=== PATIENT | male | born 1965 | race Caucasian/White ===

== ENCOUNTER 2017-01-20 13:42 | Observation (INO) ==
--- NOTE | 2017-01-20 14:01 | EKG Report ---
Stationary ECG Study [facility] ER Test Date: 01/20/2017 1:51:44 PM Pat Name: YARITZA SMITH Department: Room: EDREG Gender: M Blockman: Martina Bustos : 1965 Requested by: Nahid Chamberlain Order Number: [id number] Reading MD: OLGA LIDIA BARRY Intervals Brooks Rate: 69 P: 59 MO: 166 QRS: 24 QRSD: 126 T: 61 QT: 396 QTc: 415 Interpretive Statements SINUS RHYTHM WITH SINUS ARRHYTHMIA RSR IN V1/V2 CONSISTENT WITH RIGHT VENTRICULAR CONDUCTION DELAY Electronically Signed On 01-21-17 20:41:07 CDT by OLGA ILDIA BARRY [email or web address]
[2017-01-20 14:05] LABS: Basophils # 0.1 10*3/uL (0.0-0.2); Basophils % 0.7 % (0.0-0.8); Eosinophils # 0.2 10*3/uL (0.0-0.87); Eosinophils % 2.7 % (0.00-10.9); Hematocrit 43.8 VOL% (42.0-52.0); Hemoglobin 14.9 GM/DL (14.0-18.0); Immature Granulocytes % 0.8 %; Immature Granulocytes Absolute 0.07 #; Lymphocytes # 2.2 10*3/uL (1.4-4.0); Lymphocytes % 26.7 % (21.2-54.2); Mean Corpuscular Hemoglobin 28 PG (27-34); Mean Platelet Volume 10.2 FL (9.6-12.0); Monocytes # 0.4 10*3/uL (0.11-0.8); Monocytes % 4.6 % (1.7-12.7); Neutrophils # 5.3 10*3/uL (1.4-7.4); Neutrophils % 64.5 % (38.7-73.9); Platelet Count 282 T/CUMM (130-400); Red Blood Count 5.28 MC/CUMM (3.8-5.5); Red Cell Distribution Width 12.9 % (9.3-17.3); White Blood Count 8.3 T/CUMM (4-12)
--- NOTE | 2017-01-20 14:13 | XRay Report ---
XR chest 2V Indication: Chest pain Comparison: None Technique: Frontal and lateral views of the chest. Findings: Heart size appears upper limits normal. Chronic change of the lungs without focal consolidation, pleural effusion, or pneumothorax. Visualized osseous and surrounding soft tissue structures demonstrate no acute abnormality. IMPRESSION: No acute cardiopulmonary process demonstrated. PROCEDURE INTERPRETED AT [facility] DEPARTMENT OF RADIOLOGY Final Report Signed by: Dr Chay Hall
[2017-01-20 14:23] LABS: D-Dimer <= 0.5 MG/L FEU; INR 0.9; PT Patient Result 9.7 SECS; Partial Thromboplastin Time 27.1 SECS (0-40)
[2017-01-20 14:27] LABS: Albumin 3.9 G/DL (3.4-5.0); Bilirubin,Total 0.6 MG/DL (0.2-1.0); Calcium 8.8 MG/DL (8.5-10.1); Magnesium 2.3 MG/DL (1.8-2.4); Osmolality,Calculated 281.3 MOS/KG (273-304); Potassium 3.7 MMOL/L (3.5-5.1); Total Protein 7.1 G/DL (6.4-8.3)
[2017-01-20] MEDS ORDERED: NITROGLYCERIN 2% OINT 1 INCH/GM PACK TOP STA (15:11)
[2017-01-20] MEDS ORDERED: ENOXAPARIN 80 MG/0.8 ML SYRINGE SUBCUT STA (15:11)
--- NOTE | 2017-01-20 15:18 | Emergency Department Note ---
Jennifer Daniels Mantricia, am scribing for, and in the presence of, Nahid Lopez MD 15:13. Jessica Daniels James D, MD, personally performed the services described in this documentation, ascribed by Aguilar Rodriguez in my presence, and it is both accurate and complete 516 . Arrival - Arrival Chief Complaint: Chest Pain Stated Complaint: chfest tightness and nausea ED Nursing Triage Note: Pt c/o CP x 3 wks ago was seen at [facility] on January 11. Pain worse today with dizziness and nausea. Mode of Arrival: Ambulatory Limitations: No Limitations Source: Patient Time Seen by Provider: 01/20/17 15:00 - History of Present Illness HPI Narrative: Pt is a 51 y/o white male arriving to ED with c/o chest pain that onset 3 weeks ago. He states that the pain has waxed and waned for 3 weeks; however the pain worsened today and radiated to his LUE. He also states that the pain worsens with movement and is accompanied with nausea and SOB. Pt reports no other complaints to ED. Onset (ago): week(s) Consistency: constant Severity: moderate Allergies/Adverse Reactions: Allergies Allergy/AdvReac Type Severity Reaction Status Date / Time No Known Allergies Allergy Verified 01/20/17 13:47 Home Medications: Home Medications Medication Instructions Recorded Confirmed Type No Known Home Medications [No 01/20/17 01/20/17 History Known Home Medications] Review of System - Review of System 12 point system: reviewed and no additional remarkable complaints except as stated - Review of System Constitutional: Absent: chills, diaphoresis, fever Eyes: Absent: discharge, pain Head/Ears/Nose/Throat: Absent: earache Respiratory: Absent: cough, respiratory distress, wheezing Cardiovascular: Present: chest pain, dyspnea on exertion. Absent: palpitations Gastrointestinal: Present: nausea. Absent: abdominal pain, vomiting, diarrhea Genitourinary male: Absent: urgency, dysuria Musculoskeletal: Present: arm pain (LUE). Absent: back pain, lower back pain, leg pain, neck pain Skin: Absent: rash, lesions Neurological: Absent: headache, weakness Psychiatric: Absent: anxiety Medical,Surgical,& Family Hx - Social History Smoking Status: Never smoker Exam Vital Signs: Vital Signs Temperature 97.9 F 01/20/17 16:49 Pulse Rate 69 05/30/17 16:49 Respiratory Rate 16 01/20/17 16:49 Blood Pressure 139/78 01/20/17 16:49 O2 Sat by Pulse Oximetry 98 01/20/17 14:49 - General General appearance: alert, in no apparent distress - Head Head exam: Present: atraumatic, normocephalic, normal inspection - Eye Eye exam: Present: normal appearance, PERRL, EOMI - ENT ENT exam: Present: normal exam, normal oropharynx, mucous membranes moist, TM's normal bilaterally, normal external ear exam - Neck Neck exam: Present: normal inspection, full ROM, trachea midline. Absent: tenderness - Chest Chest inspection: Present: normal inspection, symmetric chest wall rise. Absent : tenderness - Respiratory Respiratory exam: Present: normal lung sounds bilaterally - Cardiovascular Cardiovascular exam: Present: regular rate, normal rhythm, normal heart sounds - Abdominal Exam Abdominal exam: Present: soft, normal bowel sounds. Absent: distention, tenderness, guarding, rebound - Extremities Exam Extremities exam: Present: normal inspection, full ROM, normal capillary refill. Absent: tenderness, pedal edema - Back Exam Back exam: Present: normal inspection, full ROM. Absent: tenderness - Neurological Exam Neurological exam: Present: alert, oriented X3, CN II-XII intact, normal gait, reflexes normal - Psychiatric Psychiatric exam: Present: normal affect, normal mood - Skin Skin exam: Present: warm, dry, intact, normal color Course - Consultations Consultation #1: Discussed with Dr. Navarrete. The patient will be seen in the emergency department by him. Patient will be taken to the [facility] for left heart cath. Time: 15:18 Results - Labs CBC & BMP: 01/20/17 13:50 01/20/17 13:50 Lab Results: I have reviewed the patients labs - EKG EKG results: interpreted by ERMD - Impressions EKG: Sinus rhythm with sinus arrhythmia, rate 69, incomplete right bundle branch block, normal ST-T waves. - Diagnostic Findings Procedure: Chest x-ray: image reviewed by me (No infiltrates, no pleural effusions, no cardiomegaly) Disposition Clinical Impression: Chest pain Case discussed with: patient, patient's family Disposition: Still a Patient Condition: Stable
[2017-01-20] MEDS ORDERED: ENOXAPARIN 100 MG/ML SYRINGE SUBCUT ONE (15:26)
[2017-01-20] MEDS ORDERED: NITROGLYCERIN 2% OINT 1 INCH/GM PACK TOP ONE (15:26)
[2017-01-20] MEDS ORDERED: DIAZEPAM 5 MG TABLET PO ONE ×2 (15:33→19:21)
[2017-01-20] MEDS ORDERED: diphenhydrAMINE CAP 25 MG CAPSULE PO ONE ×2 (15:33→19:21)
--- NOTE | 2017-01-20 15:37 | Cardiology History & Physical ---
Assessment and Plan - Time spent with patient Time spent with patient: Less than 30 minutes (1) Chest pain Status: Acute Assessment and plan: Progressive chest discomfort and shortness of breath associated with stressful situations that is progressive. He is very anxious about this being his heart. He is scheduled to see Dr. Mccarthy in mid January but states that he is not able to wait that long. I discussed with him the risks benefits and options specifically as it relates to his relative low identifiable risk troponin is negative he has had multiple episodes of chest discomfort but does not have diagnostic EKG changes although his EKG is abnormal. We talked about a gated walking nuclear stress test and he specifically requested a heart cath. He understands there is potential risk but he wants to know "if something is wrong and if so fix it." He states that he was ready to get back to work. I call and discuss with Dr. López. Dr. López is able to perform the heart cath today we will plan on having left heart catheterization selective coronary angiography via the right radial approach. The patient is extremely anxious about his discomfort. Current Visit: Yes Qualifiers: Ischemic chest pain type: unspecified angina pectoris type (2) Abnormal ECG Status: Chronic Current Visit: Yes History of Present Illness Chief complaint: chest pain/tightness, progressive History of present illness: Mr. Wharton is a 51 year old male who started having discomfort in his chest and dyspnea with a sensation of air hunger at rest that started on December 29. He has had a couple episodes associated nausea and a couple episodes where it radiated to his neck. The most prominent was last Thursday. He was evaluated at [facility] he had a nondiagnostic or nonischemic appearing EKG and negative cardiac biomarkers. He was discharged home in received an appointment to follow with Dr. Kurt Mccarthy in mid January. He presents today stating that he cannot wait that long there is something wrong he has got a have it fixed. He is ready to get it fixed he can go home back to work. He has not necessarily noted that his discomfort is worse when he exerts himself but he states any type of stress brings it on and he has "all kinds of stress." The patient specifically requested left heart cath. Home Medications Medication Instructions Recorded Confirmed Type No Known Home Medications [No 01/20/17 01/20/17 History Known Home Medications] Allergies Allergy/AdvReac Type Severity Reaction Status Date / Time No Known Allergies Allergy Verified 01/20/17 13:47 - Constitutional Constitutional: Absent: anorexia, chills - EENT Eyes: Absent: blurry vision, diplopia Nose, mouth and throat: Absent: epistaxis, lip swelling - Cardiovascular Cardiovascular: Present: chest pain at rest, dyspnea, dyspnea on exertion. Absent: chest pain with activity, edema, orthopnea - Respiratory Respiratory: Present: dyspnea, dyspnea on exertion - Gastrointestinal Gastrointestinal: Present: dyspepsia - Genitourinary Genitourinary: Absent: difficulty urinating, dysuria - Musculoskeletal Musculoskeletal: Absent: arthralgias, joint swelling - Neurological Neurological: Absent: abnormal speech, disequilibrium - Psychiatric Psychiatric: Present: anxiety. Absent: depression - Endocrine Endocrine: Absent: cold intolerance, heat intolerance - Hematologic/Lymphatic Hematologic/Lymphatic: Absent: easy bleeding, easy bruising Medical,Surgical,& Family Hx - Social History Smoking Status: Never smoker Frequency of Alcohol Use: None Type of Drug Use: None Marital Status: Lives With:: Spouse Functional capacity: independent ambulation Cardiology Physical Exam - Constitutional Vitals: Vital Signs Temp Pulse Resp BP Pulse Ox 96.6 F L 72 16 134/79 98 01/20/17 14:49 01/20/17 14:49 01/20/17 14:49 01/20/17 14:49 01/20/17 14:49 Intake and Output 01/19/17 01/20/17 01/20/17 23:59 07:59 15:59 Other: Weight 88.451 kg Patient Weight 01/20/17 23:59 Weight 88.451 kg General appearance: normal weight - Head Head exam: Present: normal inspection - Eye Eye exam: Present: EOMI Pupils: Present: LUCERO - ENT ENT exam: Present: normal exam - Neck Neck exam: Present: normal inspection - Respiratory Respiratory exam: Present: clear to auscultation bilaterally - Cardiovascular Cardiovascular exam: Present: regular rate and rhythm - GI/Abdominal GI/Abdominal exam: Present: normal bowel sounds, hyperactive bowel sounds - Extremities Exam Extremities exam: Present: normal inspection - Back Exam Back exam: Present: normal inspection - Neurological Exam Neurological exam: Present: alert, oriented X3, CN II-XII intact - Psychiatric Psychiatric exam: Present: normal affect, normal mood - Skin Skin exam: Present: normal color Result/EKG - Labs CBC & BMP: 01/20/17 13:50 01/20/17 13:50 Labs: Laboratory Results - last 24 hr 01/20/17 01/20/17 01/20/17 13:50 13:50 13:50 WBC RBC Hgb Hct MCV MCH MCHC RDW Plt Count MPV Neut % (Auto) Lymph % (Auto) [place] % (Auto) Eos % (Auto) Baso % (Auto) Neut # (Auto) Lymph # (Auto) [place] # (Auto) Eos # (Auto) Baso # (Auto) Immature Gran % Nucleated RBC % Immature Gran # Nucleated RBCs # INR 0.9 PT Patient/Control Mix 9.7 D-Dimer, Quantitative <= 0.5 Circ Anticoag PTT 27.1 Sodium 141 Potassium 3.7 Chloride 107 Carbon Dioxide 24 Anion Gap 13.7 BUN 14 Creatinine 0.90 GFR Calculation 114 BUN/Creatinine Ratio 15.00 Glucose 96 Calculated Osmolality 281.3 Calcium 8.8 Magnesium 2.3 Total Bilirubin 0.60 AST 17 ALT 29 Alkaline Phosphatase 70 Troponin I B-Natriuretic Peptide 11 Total Protein 7.1 Albumin 3.9 Globulin 3.2 Albumin/Globulin Ratio 1.2 Lipase 201.0 01/20/17 01/20/17 13:50 13:50 WBC 8.3 RBC 5.28 Hgb 14.9 Hct 43.8 MCV 83.0 L MCH 28 MCHC 34.0 RDW 12.9 Plt Count 282 MPV 10.2 Neut % (Auto) 64.5 Lymph % (Auto) 26.7 [place] % (Auto) 4.6 Eos % (Auto) 2.7 Baso % (Auto) 0.7 Neut # (Auto) 5.3 Lymph # (Auto) 2.2 [place] # (Auto) 0.4 Eos # (Auto) 0.2 Baso # (Auto) 0.1 Immature Gran % 0.8 Nucleated RBC % 0.0 Immature Gran # 0.07 Nucleated RBCs # 0.00 INR PT Patient/Control Mix D-Dimer, Quantitative Circ Anticoag PTT Sodium Potassium Chloride Carbon Dioxide Anion Gap BUN Creatinine GFR Calculation BUN/Creatinine Ratio Glucose Calculated Osmolality Calcium Magnesium Total Bilirubin AST ALT Alkaline Phosphatase Troponin I < 0.015 B-Natriuretic Peptide Total Protein Albumin Globulin Albumin/Globulin Ratio Lipase - EKG EKG results: interpreted by me (NSR with incomplete RBBB)
--- NOTE | 2017-01-20 15:43 | History and Physical Update ---
Sedation H&P Update - History and Physical H&P was reviewed, the patient examined and there: are no changes in the patients condition since last H&P was completed. - Dictation Physical: refer to H&P completed by admitting physician - Physical Exam Mental Status: alert and oriented Heart: regular rate and rhythm Lung: clear to auscultation Abdomen: within normal limits Vitals: within normal limits - Sedation Plan for Sedation: moderate Patient Consent: Procedure disscussed with patient and patinet has consented., Risks and benefits were discussed with patient,including infection,, bleeding, injury to surrounding structures, seizure, temporary nerve, Patient understands and accepts potential risks/benefits and agrees to, proceed. ASA Class: I Airway Assessment: Class II: Soft palate, uvula, fauces visible
[2017-01-20] MEDS ORDERED: HYDROmorphone 2 MG/1 ML VIAL ONE (15:58)
[2017-01-20] MEDS ORDERED: MIDAZOLAM 2 MG/2 ML VIAL ONE (15:58)
[2017-01-20] MEDS ORDERED: SODIUM CHLORIDE 0.45% 1,000 ML IV SCH ×2 (16:00→19:21)
[2017-01-20] MEDS ORDERED: VERAPAMIL 5 MG/2 ML VIAL ONE (16:05)
[2017-01-20] MEDS ORDERED: NITROGLYCERIN DRIP 50 MG/250 ML BOTTLE IV ONE (16:05)
[2017-01-20] MEDS ORDERED: LIDOCAINE 1% 20 ML VIAL ONE (16:22)
[2017-01-20] MEDS ORDERED: HEPARIN/NACL 0.9% 2 UNITS/ML 1,000 ML IV ONE (16:22)
--- NOTE | 2017-01-20 16:28 | Cardiac Catheterization ---
Date of Procedure:: 01/20/17 Procedure: CLINICAL HISTORY: Please see the history and physical. The patient had clinical symptoms suspicious for angina and preferred cardiac catheterization for definitive coronary artery assessment. PROCEDURES PERFORMED: 1. Right radial percutaneous arteriotomy 2. Left heart catheterization 3. Resting hemodynamics 4. Left ventriculography. 5. Coronary arteriography 6. Hemoband placement DESCRIPTION OF PROCEDURE: After obtaining informed consent, the patient was taken to the pathology laboratory technologist, prepped and draped in the usual sterile manner. We accessed the right radial artery using modified Seldinger technique in the usual fashion. We placed a 6-Arabic slim sheath without difficulty. We then used a Tig catheter to engage the right coronary and left main coronary arteries to perform angiography in multiple orthogonal views. There were no problems or complications during the procedure. We then used an angled pigtail catheter to perform a left heart catheterization with left ventriculogram and pressure measurement in the usual fashion. After removing the catheter, we placed a HemoBand and removed the sheath without difficulty. There were no problems during the case. HEMODYNAMICS: Please see the accompanying data sheet. Left ventricular end- diastolic pressure was 13 mmHg. CORONARIES: The left main coronary artery is a large-caliber vessel which trifurcates into the left anterior descending, left circumflex and ramus intermedius branches. The left main coronary artery is angiographically free of significant obstructive disease. The left circumflex coronary artery is a moderate-sized vessel which gives off a moderate-sized obtuse marginal branch. The left circumflex coronary artery is angiographically free of significant obstructive disease. The ramus intermedius branch is a large-caliber vessel which courses over the anterolateral wall and is angiographically free of significant obstructive disease. The left anterior descending is a large-caliber vessel which wraps the apex. The left anterior descending coronary artery is angiographically free of significant obstructive disease. The right coronary artery is large caliber vessel which gives of the posterior descending artery and a posterior lateral system. The right coronary artery is angiographically free of significant obstructive disease. LEFT VENTRICULOGRAPHY: Left ventriculogram shows left ventricular ejection fraction of approximately 60-65% with normal regional wall motion. IMPRESSION: 1. There is no significant obstructive coronary artery disease seen at this time. 2. Normal left ventricular systolic function. 3. Normal left ventricular end-diastolic pressure. PLAN: Patient does not have any significant obstructive coronary artery disease. We will monitor him for a couple of hours until his recovery is complete and then anticipate discharging him home later this evening. It appears that his symptoms are noncardiac/nonischemic in nature. Anesthesia: minimal conscious sedation Surgeon / Physician: Otis López Estimated blood loss: minimal Condition: stable Disposition: floor - Discharge Disposition: Disch To Home/Self Care - Medications / Follow-up Referrals: Otis López MD [Physician] - (2 weeks)
[2017-01-20 19:32] VITALS: BP 133/82
== END 2017-01-20 19:22 | disposition home or self-care (01) ==
LOC: N.EDINP 13:42 → N.ED 13:42 → N.EDINP 15:35
PROVIDERS: ADMIT Internal Medicine Cardiovascular Disease; ATTEND Internal Medicine Cardiovascular Disease
PROC: CLCCHCL (ICD-10-PCS; 2017-01-20 16:15)